=== PATIENT | male | born 1980 ===

== ENCOUNTER 2017-03-08 10:10 | Emergency (ER) | payer SELFPAY ==
--- NOTE | 2017-03-08 12:14 | UC ---
General HPI - HPI Summary HPI Summary: 37yo BM p/w c/o right hip pain and chest congestion associated with cough x 3-4 days. Right hip pain started about 6m ago he thinks after an injury but not remember exactly how but works in construction. - History of Current Complaint Chief Complaint: UCRespiratory Stated Complaint: CONGESTED, BODY ACHES, HIP PAIN Time Seen by Provider: 03/08/17 11:39 Hx Obtained From: Patient Hx From Patient Unobtainable Due To: Other Onset/Duration: Lasting Days Onset Severity: Moderate Current Severity: Moderate Associated Signs & Symptoms: Positive: Cough, Other - right hip pain - Allergy/Home Medications Allergies/Adverse Reactions: Allergies Allergy/AdvReac Type Severity Reaction Status Date / Time Peanut-containing Drug Allergy Swelling Verified 03/08/17 10:59 Products Of Face,Lips,& Throat Cats Allergy Rash And Uncoded 03/08/17 10:59 Itching Home Medications: Home Medications Ibuprofen [Ibuprofen 200 MG] 600 mg PO Q6HR PRN 03/08/17 [History Confirmed 07/20] PMH/Surg Hx/FS Hx/Imm Hx - Surgical History Surgical History: None - Social History Alcohol Use: Rare Substance Use Type: Marijuana Substance Use Comment - Amount & Last Used: Daily Smoking Status (MU): Heavy Every Day Tobacco Smoker Amount Used/How Often: 1/2ppd - Immunization History Most Recent Influenza Vaccination: Not UTD Review of Systems Constitutional: Negative Skin: Negative Eyes: Negative ENT: Negative Respiratory: Cough, Other - chest congestion Cardiovascular: Negative Gastrointestinal: Negative Genitourinary: Negative Motor: Negative Neurovascular: Negative Musculoskeletal: Decreased ROM, Other: - right hip joint pain while walking Neurological: Negative Psychological: Negative All Other Systems Reviewed And Are Negative: Yes Physical Exam Triage Information Reviewed: Yes Vital Signs: Initial Vital Signs Temp 35.8 C 03/08/17 10:50 Pulse 95 03/08/17 10:50 Resp 18 03/08/17 10:50 BP 135/88 03/08/17 10:50 Pulse Ox 96 03/08/17 10:50 Eye Exam: Normal ENT Exam: Normal Dental Exam: Normal Neck exam: Normal Neck: Positive: 1 Respiratory Exam: Normal Respiratory: Positive: Normal breath sounds, Rhonchi, Expiration, Inspiration. Negative: No respiratory distress, Crackles, Stridor, Wheezing Cardiovascular Exam: Normal Abdominal Exam: Normal Musculoskeletal Exam: Other - positive straight leg test and moderate tenderness on FABIR and FADER on right hip Neurological Exam: Normal Psychological Exam: Normal Skin Exam: Normal Course/Dx - Course Course Of Treatment: XR of right hip and pelvis neg for fx, advised f/u with ortho or PCP and referrral for MRI to better assess for bursitisvs tendinitis vs arthropathy - Differential Dx - Multi-Symptom Provider Diagnoses: Right hip pain and Bronchitis Discharge - Discharge Plan Condition: Stable Disposition: HOME Prescriptions: Azithromyxin DEMETRIO (NF) [Z-Demetrio (Zithromax) 250 mg tabs #6] 2 tab PO .TODAY, THEN 1 DAILY #6 tab Patient Education Materials: Acute Bronchitis (ED), Hip Pain (ED) Referrals: No Primary Care Phys,NOPCP [Primary Care Provider] - Additional Instructions: as tolerated, f/u with PCP for MRI of right hip and/or with orthopedics
--- NOTE | 2017-03-08 12:34 | RAD ---
HISTORY: Pain COMPARISONS: None VIEWS: 4, Frontal view of the pelvis with frontal and frog-leg views of the right hip FINDINGS: BONE DENSITY: Normal. BONES: There is no displaced fracture. JOINTS: There is no arthropathy. ALIGNMENT: There is no dislocation. SOFT TISSUES: Unremarkable. OTHER FINDINGS: None. IMPRESSION: NO ACUTE OSSEOUS INJURY. IF SYMPTOMS PERSIST, RECOMMEND REPEAT IMAGING.
[2017-03-08 12:39] VITALS: BP 135/84
== END 2017-03-08 13:41 | disposition home or self-care (01) ==
LOC: UCEAST 10:10
DX: M25.551 Pain in right hip (principal); J40 Bronchitis, not specified as acute or chronic; F17.210 Nicotine dependence, cigarettes, uncomplicated
CPT/HCPCS: 99202; G0463